=== PATIENT | male | born 1955 | race Two or more races ===

== ENCOUNTER 2022-01-05 19:42 | Emergency (ER) | payer MEDICARE, MEDICAID ==
[~2022-01-05] VITALS: Ht 175.3 cm; Wt 108.9 kg
[2022-01-05 19:46] VITALS: BP 170/98
[2022-01-06] MEDS ORDERED: DIPH25CA2 PO (18:15)
[2022-01-06] MEDS ORDERED: CEPH-509 PO (18:15)
[2022-01-06] MEDS ORDERED: PRED10TA PO (18:15)
== END 2022-01-05 22:22 | disposition left against medical advice (07) ==
LOC: ER 19:42
DX: R21 Rash and other nonspecific skin eruption (principal); Z53.21 Procedure and treatment not carried out due to patient leaving prior to being seen by health care provider

== ENCOUNTER 2022-01-06 14:13 | Emergency (ER) | payer MEDICARE, MEDICAID ==
[~2022-01-06] VITALS: Ht 175.3 cm; Wt 111.1 kg
[2022-01-06 18:12] VITALS: BP 149/87
[2022-01-06] MEDS ORDERED: DIPH25CA2 PO (18:15)
[2022-01-06] MEDS ORDERED: CEPH-509 PO (18:15)
[2022-01-06] MEDS ORDERED: methylPREDNISolone SOD SUCC 125 MG/2 ML VL IM ONE (18:15)
[2022-01-06] MEDS ORDERED: PRED10TA PO (18:15)
[2022-01-06] MEDS ORDERED: cefTRIAXone SOD 1,000 MG VL IM ONE (18:15)
[2022-01-06] MEDS ORDERED: LIDOCAINE 1%HCL (LOCAL ANESTH) 10 ML MDV ONE (18:19)
== END 2022-01-06 18:34 | disposition home or self-care (01) ==
LOC: ER 14:13
DX: L03.116 Cellulitis of left lower limb (principal); Z90.49 Acquired absence of other specified parts of digestive tract; Z79.899 Other long term (current) drug therapy
CPT/HCPCS: 96372; 99284; J0696; J2001; J2930

== ENCOUNTER 2024-10-14 19:10 | Emergency (ER) | payer MEDICAID, MEDICARE ==
[~2024-10-14] VITALS: Ht 175.3 cm; Wt 88.0 kg
[~2024-10-14 19:10] MED LIST: CEPH-509 PO; DIPH25CA2 PO; PRED10TA PO
--- NOTE | 2024-10-14 19:56 | ED.PDOC ---
SOB-HPI HPI Comments 69y M who presents to the ED for chief complaint of flu-like symptoms. Pt states he has been having cough, congestion, fever, chills, headache and dizziness for the past 1 days. Pt states he has also been having associated nausea and vomiting. Pt otherwise denies any recent sick contacts. Pt in the ED, noted in no current respiratory distress and is able to speak without getting short of breath. Pt otherwise has noted 02 sat of 94% on room air and temp of 98.7F. Pt otherwise denies any other symptoms at this time. Chief Complaint: Flu like Time Seen by MD: 19:54 Primary Care Provider: NONE Reviewed notes: Nurses Notes Information Source: Patient, Relative Mode of Arrival: Wheelchair Brought in by: family member Severity: Moderate Timing: Days Duration: Since onset Context: At Rest PE Risk Factors: None History of: None Prehospital treatment: None Modifying Factors: Nothing Associated Signs and Symptoms: Fever, Cough If cough with SOB: Non-Productive Past Medical History PAST MEDICAL HISTORY: Denies Surgical History: Appendectomy, Cholecystectomy, Unknown Family History Family History: Unknown Social History Smoker: Non-Smoker Alcohol: Denies ETOH Use Drugs: Denies Drug Use Lives In: Home Constitutional: reports: chills, fever; denies: diaphoresis, fatigue, malaise, sweats, weakness, others EENTM: denies: blurred vision, double vision, ear bleeding, ear discharge, ear drainage, ear pain, ear ringing, eye pain, eye redness, hearing loss, mouth pain, mouth swelling, nasal discharge, nose bleeding, nose congestion, nose pain, photophobia, tearing, throat pain, throat swelling, voice changes, others Respiratory: reports: cough, shortness of breath; denies: hemoptysis, orthopnea, SOB at rest, SOB with excertion, stridor, wheezing, others Cardiovascular: denies: chest pain, dizzy spells, diaphoresis, Dyspnea on exertion, edema, irregular heart beat, left arm pain, lightheadedness, palpitati ons, PND, syncope, others Gastrointestinal: denies: abdomen distended, abdominal pain, blood streaked bowels, constipated, diarrhea, dysphagia, difficulty swallowing, hematemesis, melena, nausea, poor appetite, poor fluid intake, rectal bleeding, rectal pain, vomiting, others Genitourinary: denies: burning, dysuria, flank pain, frequency, hematuria, incontinence, penile discharge, penile sore, pain, testicle pain, testicle swelling, urgency, others Neurological: reports: dizziness, headache; denies: fainting, left sided numbne ss, left sided weakness, numbness, paresthesia, pre-existing deficit, right sided numbness, right sided weakness, seizure, speech problems, tingling, tremors, weakness, others Musculoskeletal: denies: back pain, gout, joint pain, joint swelling, muscle pain, muscle stiffness, neck pain, others Integumetry: denies: bruises, change in color, change in hair/nails, dryness, laceration, lesions, lumps, rash, wounds, others Allergic/Immunocompromised: denies: Difficulty Healing, Frequent Infections, Hives, Itching, others Hematologic/Lymphatic: denies: anemia, blood clots, easy bleeding, easy bruising, swollen glands, others Endocrine: denies: excessive hunger, excessive sweating, excessive thirst, excessive urination, flushing, intolerance to cold, intolerance to heat, unexplained weight gain, unexplained weight loss, others Psychiatric: denies: anxiety, bipolar disorder, depression, hopeless, panic disorder, schizophrenia, sleepless, suicidal, others All Other Systems: Reviewed and Negative Physical Exam General Appearance: Moderate Distress (Patient presents as a moderately ill 69-year-old male.), Normal HEENT: Normal ENT Inspection, Pharynx Normal, TMs Normal Neck: Full Range of Motion, Non-Tender, Normal, Normal Inspection Respiratory: Chest Non-Tender, Lungs Clear, No Accessory Muscle Use, No Respiratory Distress, Normal Breath Sounds, Other (Unremarkable auscultation bilateral lung narayanan.) Cardiovascular: No Edema, No JVD, No Murmur, No Gallop, Normal Peripheral Pulses, Regular Rate/Rhythm Breast Exam: Deferred Gastrointestinal: No Organomegaly, Non Tender, No Pulsatile Mass, Normal Bowel Sounds, Soft Genitalia: Deferred Pelvic: Deferred Rectal: Deferred Extremities: No calf tenderness, Normal capillary refill, Normal inspection, Normal range of motion, Non-tender, No pedal edema Neurologic: Alert, No Motor Deficits, Normal Affect, Normal Mood, No Sensory Deficits Cerebellar Function: Normal Reflexes: Normal Skin: Dry, Normal Color, Warm Lymphatic: No Adenopathy Was a procedure done? Was a procedure done?: No Differential Dx Differential Diagnosis: URI Comments Influenza A and B, COVID, UTI X-Ray, Labs, Meds, VS Vital Signs Date Time Temp Pulse Resp B/P (MAP) Pulse Ox O2 Delivery O2 Flow Rate FiO2 10/14/24 19:47 18 94 Room Air* 0 21 10/14/24 19:43 98.7 111 18 150/75 (100) 94 Lab Test 10/14/24 20:00 Range/Units Urine Color Yellow Yellow Urine Clarity Turbid H Clear Urine pH 5.5 5.0-9.0 Urine Specific [place] 1.030 1.001-1.035 Urine Protein 1+ H Negative Urine Ketones Trace Negative Urine Blood 1+ H Negative /uL Urine Nitrite Negative Negative Urine Bilirubin Negative Negative Urine Urobilinogen 6 Negative mg/dL Urine Leukocyte Esterase 3+ Negative /uL Urine RBC 12 0 - 3 /hpf Urine Microscopic WBC 114 H 0-3 /HPF Urine Squamous Epithelial Cells Few <5 /hpf Urine Bacteria Few H None Seen /hpf Urine Hyaline Casts Few 0 - 2 /lpf Urine Mucus Few None Seen Urine Glucose Normal Normal mg/dL Influenza Type A Antigen Positive Negative Influenza Type B Antigen Negative Negative SARS-CoV-2 Antigen (Rapid) Negative NEGATIVE Current Medications Medications (Trade) Dose Ordered Sig/Rachel Route Start Time Stop Time Status Last Admin Ondansetron HCl (Zofran) 4 mg ONCE ONCE IM 10/14/24 19:30 10/14/24 19:31 DC 10/14/24 20:40 X-Ray, Labs, Meds, VS Comment All studies performed the ED were evaluated by me personally. Swabs revealed a positive influenza a and urinalysis was confirmatory for a large urinary tract infection. Patient was given her 1st dose of antibiotics tonight prior to discharge. Patient has been advised to utilize antibiotics as directed until completion as well as additional medication. Time of 1ST Reevaluation: 22:26 Reevaluation 1ST: Improved Consultation: PCP Patient Education/Counseling: Diagnosis, Treatment Family Education/Counseling: Diagnosis, Treatment Departure 1 Departure Time of Disposition: 22:26 Impression: Primary Impression: Urinary tract infection Additional Impression: Influenza A Disposition: HOME / SELF CARE / HOMELESS Condition: Stable Additional Instructions: Advised patient utilize Levaquin and Tamiflu as directed as well as additional medication as needed. Good hydration and healthy nutrition throughout illness event. e-Prescriptions Ondansetron Odt 4MG Tab (ZOFRAN PO) 4 Mg Tb 4 MG PO Q6HP PRN, #20 TAB ODT TAB-DISSOLVE IN MOUTH, THEN SWALLOW Prov: SEVEN LUCAS 10/14/24 Acetaminophen (Acetaminophen) 500 Mg Tab 500 MG PO Q4HP PRN, #30 TAB Prov: SEVEN LUCAS 10/14/24 Ibuprofen Micronized (Ibuprofen) 800 Mg Tab 800 MG PO Q8HP PRN, #20 TAB Prov: SEVEN LUCAS 10/14/24 Oseltamivir Phosphate (Tamiflu) 75 Mg Cap 75 MG PO BID for 5 Days, #10 CAP Prov: SEVEN LUCAS 10/14/24 Levofloxacin Hemihydrate (LEVAQUIN 500 MG) 500 Mg Tab 1 TAB PO DAILY for 9 Days, #9 TAB Prov: SEVEN LUCAS 10/14/24 Discharged With: Self, Friend Critical Care Note Critical Care Time?: No Stability Stability form required: No Heart Score Heart Score: Heart Score Response (Comments) Value History N/A 0 EKG N/A 0 Age N/A 0 Risk Factors N/A 0 Troponin N/A 0 Total 0 I personally scribed for SEVEN LUCAS PAC ([email or web address]) on 10/14/24 at 19:56. Electronically submitted by Chris HANKINS). SEVEN LUCAS PAC Oct 14, 2024 19:56
[2024-10-14] MEDS: ONDANSETRON HCL 4 MG/2 ML VIAL IM ONE (20:40)
[2024-10-14 20:46] LABS: COVID19 ANTIGEN SOFIA FIA NEGATIVE (NEGATIVE)
[2024-10-14 20:48] LABS: Rapid Influenza B Negative (Negative)
[2024-10-14 20:49] LABS: Rapid Influenza A Positive (Negative)
[2024-10-14 21:36] LABS: Urine Bacteria FEW /hpf (None Seen); Urine Blood 1+ /uL (Negative); Urine Clarity Turbid (Clear); Urine Color Yellow (Yellow); Urine Hyaline Cast FEW /lpf (0 - 2); Urine Mucus FEW (None Seen); Urine Protein, UAD 1+ (Negative); Urine Squamous Epithelial Cell FEW /hpf (<5); Urine Urobilinogen 6 mg/dL (Negative); Urine WBC 114 /HPF (0-3); Urine pH 5.5 (5.0-9.0)
[2024-10-14] MEDS ORDERED: ZOFR4T PO (22:33)
[2024-10-14] MEDS ORDERED: ACET500T58 PO (22:33)
[2024-10-14] MEDS ORDERED: IBUP-1455 PO (22:33)
[2024-10-14] MEDS ORDERED: LEVO500T91 PO (22:33)
[2024-10-14] MEDS ORDERED: TAMIFLU PO (22:33)
[2024-10-14] MEDS: levoFLOXacin 250 MG TAB PO ONE (22:58)
[2024-10-14 22:59] VITALS: BP 128/74; PULSE 82; RESP 18; TEMP 98.3; O2SAT 96
== END 2024-10-14 23:01 | disposition home or self-care (01) ==
LOC: ER 19:10
DX: N39.0 Urinary tract infection, site not specified (principal); J10.1 Influenza due to other identified influenza virus with other respiratory manifestations; Z90.49 Acquired absence of other specified parts of digestive tract; Z20.822 Contact with and (suspected) exposure to COVID-19
CPT/HCPCS: 36415; 81001; 87426; 87804; 96372; 99283; J2405